=== PATIENT | female | born 1955 | race Caucasian/White ===

== ENCOUNTER 2023-11-29 13:16 | Inpatient (IN) | payer MEDICARE ==
[~2023-11-29 13:16] MED LIST: Iopamidol-370 76% 500 ML MDV (1 ML CHARGE) ONE
[2023-11-29] MEDS ORDERED: Ondansetron PF 4 MG/2 ML Vial ONE ×2 (13:32→14:30)
[2023-11-29 13:55] LABS: #Basophils 0.04 10x3/uL (0.0-0.2); %Basophils 0.7 % (0.0-1.0); %Eosinophils 0.5 % (0.0-10.0); %Lymphocytes 22.6 % (21.0-51.0); %Neutrophils 62.9 % (42.0-75.0); Hematocrit 44.4 % (36.0-47.0); Hemoglobin 15.4 g/dL (12.0-16.0); Mean Corpuscular HGB CONC 34.7 g/dL (32.0-36.0); Mean Corpuscular Hemoglobin 34.8 pg (27.0-31.0); Mean Corpuscular Volume 100.5 fL (78.0-98.0); Mean Platelet Volume 11.3 fL (7.4-10.4); Platelet Count 135 10x3/uL (130-400); RBC Distribution Width 12.4 % (11.5-14.5); Red Blood Cell (RBC) Count 4.42 mill/uL (4.20-5.40)
[2023-11-29 14:10] LABS: ALT (SGPT) 15 U/L (8-55); AST (SGOT) 19 U/L (5-34); Albumin 4.4 g/dL (3.4-4.8); Alkaline Phosphatase 86 U/L (40-110); Anion Gap 16 mmol/L (10-20); BUN (Urea Nitrogen) 13 mg/dL (9.8-20.1); Bilirubin, Total 0.6 mg/dL (0.2-1.2); Calc. Creatinine Clearance 0 mL/min (70-130); Calcium 9.8 mg/dL (7.8-10.44); Carbon Dioxide 22 mmol/L (23-31); Chloride 109 mmol/L (98-107); Estimated GFR 87; Globulin 2.9 g/dL (2.4-3.5); Glucose 101 mg/dL (80-115); Lipase 21 U/L (8-78); Potassium 3.9 mmol/L (3.5-5.1); Protein, Total 7.3 g/dL (5.8-8.1); Sodium 143 mmol/L (136-145)
[2023-11-29 14:13] LABS: Troponin I Less than 0.010 ng/mL (< 0.028)
[2023-11-29] MEDS ORDERED: hydrALAZINE 20 MG/ML VIAL ONE (14:20)
[2023-11-29] MEDS ORDERED: Promethazine HCl 25 MG/ML VIAL ONE (15:09)
[2023-11-29] MEDS ORDERED: Diltiazem HCl/D5W 125 ML ONE (15:09)
[2023-11-29] MEDS ORDERED: Nitroglycerin 0.4 MG TAB (25 Tab Bottle) SL PRN (17:57)
[2023-11-29] MEDS ORDERED: Senokot S 8.6-50 MG TAB PO PRN (17:57)
[2023-11-29] MEDS ORDERED: Pantoprazole 40 MG VIAL ONE (18:19)
[2023-11-29] MEDS: Ondansetron PF 4 MG/2 ML Vial IVP PRN (20:18)
[2023-11-29] MEDS: niCARdipine 25 MG in Sodium Chloride 0.9% 250 ML 250 ML IVPB SCH (20:18)
[2023-11-29] MEDS: Pantoprazole 40 MG VIAL IVP SCH (21:08)
[2023-11-29] MEDS: Guaifenesin DM 100-10/5 ML UDCUP PO PRN (21:09)
[2023-11-29] MEDS: diphenhydrAMINE 50 MG/ML VIAL IVP SCH (21:09)
[2023-11-29] MEDS: Sodium Chloride 0.9% 1,000 ML IV SCH (21:21)
[2023-11-29] MEDS: FLU (Fluad Triv) TS24-25 (65UP)/MF59C/PF 45 MCG/0.5 ML Syringe IM ONE (21:50)
[2023-11-29] MEDS: Acetaminophen 325 MG TAB PO PRN (21:50)
[2023-11-29 23:02] VITALS: BMI 22.8
[2023-11-30] MEDS: Labetalol HCl 100 MG/20 ML VIAL SLOW IVP PRN (01:27)
[2023-11-30 02:05] LABS: Amphetamine Not Detected (NotDetected); Barbiturates Screen Not Detected (NotDetected); Benzodiazepine Screen Not Detected (NotDetected); Cocaine Metabolite Screen Not Detected (NotDetected); Methadone Not Detected (NotDetected); Methamphetamine Not Detected (NotDetected); Opiate Screen Not Detected (NotDetected); Oxycodone Screen Not Detected (NotDetected); Phencyclidine (PCP) Not Detected (NotDetected); THC/Cannabinoid Screen Detected (NotDetected); Tricyclic Screen Not Detected (NotDetected)
[2023-11-30 04:11] LABS: #Basophils Less than 0.03 10x3/uL (0.0-0.2); #Eosinophils Less than 0.03 10x3/uL (0.0-0.7); %Basophils 0.2 % (0.0-1.0); %Lymphocytes 16.4 % (21.0-51.0); %Monocytes 10.9 % (0.0-10.0); %Neutrophils 72.1 % (42.0-75.0); Hematocrit 40.5 % (36.0-47.0); Hemoglobin 13.7 g/dL (12.0-16.0); Mean Corpuscular HGB CONC 33.8 g/dL (32.0-36.0); Mean Corpuscular Volume 100.5 fL (78.0-98.0); Mean Platelet Volume 10.9 fL (7.4-10.4); Platelet Count 103 10x3/uL (130-400); RBC Distribution Width 12.4 % (11.5-14.5); Red Blood Cell (RBC) Count 4.03 mill/uL (4.20-5.40)
[2023-11-30 04:25] LABS: Anion Gap 15 mmol/L (10-20); BUN (Urea Nitrogen) 11 mg/dL (9.8-20.1); Calc. Creatinine Clearance 91 mL/min (70-130); Carbon Dioxide 21 mmol/L (23-31); Cardiac Risk 7.3 (Less than 4.5); Chloride 110 mmol/L (98-107); Cholesterol 205 mg/dl (< 200 Desired); Estimated GFR 96; Glucose 110 mg/dL (80-115); HDL Cholesterol 28 mg/dL (>60 Neg Risk); LDL Cholesterol, Calculated 145 mg/dL; Potassium 3.8 mmol/L (3.5-5.1); Sodium 142 mmol/L (136-145); Triglycerides 161 mg/dL (Less than 150)
[2023-11-30] MEDS: hydrALAZINE 20 MG/ML VIAL SLOW IVP PRN (07:33)
[2023-11-30] MEDS ORDERED: Capsaicin 0.025% Cream 60 gm Tube TOP PRN (08:29)
[2023-11-30] MEDS: Promethazine HCl 25 MG/ML VIAL IM PRN (08:44)
[2023-11-30] MEDS: Metoprolol Tartrate 100 MG TAB PO SCH (10:17)
[2023-11-30] MEDS: Lisinopril 5 MG TAB PO SCH (10:17)
[2023-11-30 12:57] VITALS: BMI 22.9
[2023-11-30] MEDS ORDERED: Regadenoson 0.4 MG/5 ML SYRINGE ONE (13:26)
[2023-11-30] MEDS: Citalopram 20 MG TAB PO SCH (20:42)
[2023-11-30] MEDS: Fioricet 325/50/40 mg Tablet PO PRN (21:24)
[2023-12-01 06:12] LABS: #Basophils Less than 0.03 10x3/uL (0.0-0.2); %Basophils 0.2 % (0.0-1.0); %Eosinophils 0.6 % (0.0-10.0); %Lymphocytes 25.7 % (21.0-51.0); %Monocytes 9.5 % (0.0-10.0); %Neutrophils 63.6 % (42.0-75.0); Hematocrit 38.7 % (36.0-47.0); Mean Corpuscular HGB CONC 33.6 g/dL (32.0-36.0); Mean Corpuscular Hemoglobin 34.7 pg (27.0-31.0); Mean Corpuscular Volume 103.2 fL (78.0-98.0); Mean Platelet Volume 11.4 fL (7.4-10.4); Platelet Count 102 10x3/uL (130-400); RBC Distribution Width 12.6 % (11.5-14.5); Red Blood Cell (RBC) Count 3.75 mill/uL (4.20-5.40)
[2023-12-01 06:24] LABS: Anion Gap 15 mmol/L (10-20); BUN (Urea Nitrogen) 8 mg/dL (9.8-20.1); Calc. Creatinine Clearance 91 mL/min (70-130); Calcium 8.7 mg/dL (7.8-10.44); Carbon Dioxide 18 mmol/L (23-31); Chloride 111 mmol/L (98-107); Estimated GFR 96; Glucose 80 mg/dL (80-115); Potassium 4.6 mmol/L (3.5-5.1); Sodium 139 mmol/L (136-145)
[2023-12-01] MEDS: Citalopram 20 MG TAB PO SCH (08:39)
[2023-12-01 12:03] VITALS: BP 173/90; TEMP 99
[2023-12-01] MEDS: Lisinopril 5 MG TAB PO SCH (12:03)
[2023-12-01] MEDS: Amlodipine 5 MG TAB PO SCH (12:03)
[2023-12-02] MEDS ORDERED: Amlodipine 5 MG TAB PO SCH (09:00)
[2023-12-02] MEDS ORDERED: Lisinopril 10 MG TAB PO SCH (09:00)
== END 2023-12-01 12:33 | disposition home or self-care (01) | DRG 392 ==
LOC: ERS 13:16 → CCU 18:02 → SURG B 11-30 13:39
PROVIDERS: ADMIT Hospitalist; ATTEND Internal Medicine
DX: K29.70 Gastritis, unspecified, without bleeding (principal); I16.0 Hypertensive urgency; I25.10 Atherosclerotic heart disease of native coronary artery without angina pectoris; I10 Essential (primary) hypertension; E78.5 Hyperlipidemia, unspecified; F41.9 Anxiety disorder, unspecified; F32.A Depression, unspecified; N28.1 Cyst of kidney, acquired; Z66 Do not resuscitate; I70.0 Atherosclerosis of aorta; F17.210 Nicotine dependence, cigarettes, uncomplicated; K21.9 Gastro-esophageal reflux disease without esophagitis; R91.8 Other nonspecific abnormal finding of lung field; Z95.5 Presence of coronary angioplasty implant and graft; Z71.6 Tobacco abuse counseling; Z90.49 Acquired absence of other specified parts of digestive tract; Z79.899 Other long term (current) drug therapy; Z88.0 Allergy status to penicillin
CPT/HCPCS: 36415; 70450; 71045; 71275; 74174; 76770; 78452; 80048; 80053; 80061; 80306; 83605; 83690; 83880; 84484; 85025; 93005; 93017; 93975; 94760; 96361; 96365; 96366; 96374; 96375; 96376; A9500; J0360; J1200; J2272; J2405; J2470; J2550; J2785; J3490; J7030; J7050; Q9967